=== PATIENT | female | born 1955 | race Caucasian/White ===

== ENCOUNTER 2016-11-01 12:17 | Emergency (ER) | payer MEDICARE ==
[2016-11-01 12:30] VITALS: O2SAT 97
--- NOTE | 2016-11-01 12:55 | ERPHSYRPT ---
- History of Present Illness Time Seen by Provider: 11/01/16 12:47 Source: patient Exam Limitations: no limitations Patient Subjective Stated Complaint: PT REPORTS SWELLING ET PAIN TO RIGHT FOOT- HX OF GOUT Triage Nursing Assessment: PEDAL PULSES REGULAR-NO OBVIOUS SIGNS OF INJURY Physician History: The patient is a 60-year-old female complaining of worsening pain and redness in her right great toe since yesterday. She has a history of gout in the same toe that has occurred twice in the past. She's had bleeding problems with NSAIDs and is unable to take them. She usually gets steroids for a gout flareup. Her past medical history is significant for GERD, hypertension, and gout. She has recently moved here from [place]. Method of Injury: unknown Occurred: yesterday Quality: aching, sharpness, throbbing Severity of Pain-Max: moderate Severity of Pain-Current: moderate Lower Extremities Pain: 1st toe: right Modifying Factors: Improves With: nothing Associated Symptoms: unable to bear weight Allergies/Adverse Reactions: No Known Drug Allergies Allergy (Unverified 11/01/16 12:30) Home Medications: Aspirin 81 gm Chew [Baby Aspirin 81 mg Chew] 81 mg PO DAILY 11/01/16 [ History] Lisinopril/Hydrochlorothiazide [Lisinopril-Hctz 10-12.5 mg Tab] 1 each PO DAILY 11/01/16 [History] Metoprolol Succinate 50 mg [Toprol Xl 50 MG] 50 mg PO DAILY 11/01/16 [ History] Omeprazole 20 MG [Prilosec 20 mg] 20 mg PO DAILY 11/01/16 [History] Hx Tetanus, Diphtheria Vaccination/Date Given: No Hx Influenza Vaccination/Date Given: No Hx Pneumococcal Vaccination/Date Given: No Immunizations Up to Date: Yes - Review of Systems Constitutional: No Fever, No Chills Eyes: No Symptoms Ears, Nose, & Throat: No Symptoms Respiratory: No Cough, No Dyspnea Cardiac: No Chest Pain, No Edema, No Syncope Abdominal/Gastrointestinal: No Abdominal Pain, No Nausea, No Vomiting, No Diarrhea Genitourinary Symptoms: No Dysuria Musculoskeletal: Joint Redness, Joint Pain, Joint Swelling Skin: No Rash Neurological: No Dizziness, No Focal Weakness, No Sensory Changes Psychological: No Symptoms Endocrine: No Symptoms Hematologic/Lymphatic: No Symptoms Immunological/Allergic: No Symptoms All Other Systems: Reviewed and Negative - Past Medical History Pertinent Past Medical History: Yes Cardiac History: Hypertension Musculoskeletal History: Degenerative Disk Disease Other Medical History: GOUT - Past Surgical History Past Surgical History: Yes Female Surgical History: Hysterectomy - Social History Smoking Status: Never smoker Exposure to second hand smoke: No Drug Use: none Patient Lives Alone: No - Female History Hx Last Menstrual Period: HYSTERECTOMY - Nursing Vital Signs Nursing Vital Signs: Initial Vital Signs Temperature 97.6 F Temperature Source Oral Pulse Rate 71 Respiratory Rate 22 Blood Pressure [Right Arm] 139/60 Pain Intensity 9 - Physical Exam General Appearance: alert Eyes, Ears, Nose, Throat Exam: moist mucous membranes Neck Exam: non-tender, supple Cardiovascular/Respiratory Exam: chest non-tender, normal breath sounds, regular rate/rhythm, no respiratory distress Gastrointestinal/Abdominal Exam: non-tender, guarding Back Exam: normal inspection, No vertebral tenderness Hips Exam: bilateral: normal inspection Legs Exam: bilateral leg: normal inspection Knees Exam: bilateral knee: normal inspection Ankle Exam: bilateral ankle: normal inspection Foot Exam: right foot: limited range of motion (great toe), soft tissue tenderness, swelling Neuro/Tendon Exam: normal sensation, normal motor functions Mental Status Exam: alert, oriented x 3, cooperative Skin Exam: warm, dry, rash (right MTP joint) SpO2 Interpretation: normal SpO2: 97 Oxygen Delivery: Room Air - Departure Time of Disposition: 12:59 Departure Disposition: Home Clinical Impression: Acute gout Condition: Stable Critical Care Time: No Additional Instructions: You have an acute exacerbation of gout in your right big toe. You have been given a prescription for prednisone 60 mg daily for 7 days. Since you are new to the area, you can obtain prescriptions from [facility], [facility], or [facility]. Follow-up with your primary medical doctor for long-term prevention of gout. Prescriptions: Prednisone 20 mg [Deltasone 20 mg] 3 tab PO DAILY #21 tablet
[2016-11-01 13:09] VITALS: BP 140/68; PULSE 67
== END 2016-11-01 13:08 | disposition home or self-care (01) ==
LOC: ED 12:17
DX: M10.9 Gout, unspecified (principal); M79.674 Pain in right toe(s); Z87.898 Personal history of other specified conditions
CPT/HCPCS: 99281; 99283

== ENCOUNTER 2017-04-07 22:41 | Emergency (ER) | payer MEDICARE ==
[2017-04-07] MEDS ORDERED: TORAdol 30 mg Injection IM ONE (22:55)
[2017-04-07] MEDS ORDERED: TORAdol 30 mg Injection ONE (22:59)
--- NOTE | 2017-04-07 23:02 | ERPHSYRPT ---
- History of Present Illness Time Seen by Provider: 04/07/17 22:52 Source: patient Exam Limitations: no limitations Patient Subjective Stated Complaint: PT states "I stood up and my foot was asleep and I guess I rolled it." Triage Nursing Assessment: Pt alert and oriented X 3, skin pwd pt ambulates with a limp. Pt rt ankle swollen laterally. CSM X 4. Physician History: 61-year-old white female arrives with complaint of pain in her right lateral ankle since 9:15 PM this evening. According to the patient she stood up her right foot had fallen asleep and she twisted her ankle. She has pain and swelling on her right lateral ankle. She denies any other complaints. Past medical history includes high blood pressure, degenerative disc disease, gout. Past surgical history includes hysterectomy. Method of Injury: twisted (twisted right ankle) Occurred: just prior to arrival (9:15 PM tonight) Quality: constant Severity of Pain-Max: moderate Severity of Pain-Current: moderate Lower Extremities Pain: ankle: right Modifying Factors: Improves With: nothing Associated Symptoms: none Allergies/Adverse Reactions: No Known Drug Allergies Allergy (Unverified 11/01/16 12:30) Home Medications: Aspirin 81 gm Chew [Baby Aspirin 81 mg Chew] 81 mg PO DAILY 11/01/16 [ History] Lisinopril/Hydrochlorothiazide [Lisinopril-Hctz 10-12.5 mg Tab] 1 each PO DAILY 11/01/16 [History] Metoprolol Succinate 50 mg [Toprol Xl 50 MG] 50 mg PO DAILY 11/01/16 [ History] Omeprazole 20 MG [Prilosec 20 mg] 20 mg PO DAILY 11/01/16 [History] Allopurinol 300 mg [Zyloprim 300 mg] 300 mg PO DAILY 04/07/17 [History] Hx Tetanus, Diphtheria Vaccination/Date Given: No Hx Influenza Vaccination/Date Given: No Hx Pneumococcal Vaccination/Date Given: No Immunizations Up to Date: Yes - Review of Systems Constitutional: No Fever, No Chills Eyes: No Symptoms Ears, Nose, & Throat: No Symptoms Respiratory: No Cough, No Dyspnea Cardiac: No Chest Pain, No Edema, No Syncope Abdominal/Gastrointestinal: No Abdominal Pain, No Nausea, No Vomiting, No Diarrhea Genitourinary Symptoms: No Dysuria Musculoskeletal: Other (right ankle pain and swelling) Skin: No Rash Neurological: No Dizziness, No Focal Weakness, No Sensory Changes Psychological: No Symptoms Endocrine: No Symptoms All Other Systems: Reviewed and Negative - Past Medical History Pertinent Past Medical History: Yes Cardiac History: Hypertension Musculoskeletal History: Degenerative Disk Disease, Other (gout) Other Medical History: GOUT - Past Surgical History Past Surgical History: Yes Female Surgical History: Hysterectomy - Social History Smoking Status: Never smoker Exposure to second hand smoke: Yes Drug Use: none Patient Lives Alone: No - Female History Hx Last Menstrual Period: histerectomy - Nursing Vital Signs Nursing Vital Signs: Initial Vital Signs Temperature 99.0 F 04/07/17 22:42 Pulse Rate 89 04/07/17 22:42 Respiratory Rate 16 04/07/17 22:42 Blood Pressure 157/82 04/07/17 22:42 O2 Sat by Pulse Oximetry 97 04/07/17 22:42 Pain Scale Pain Intensity 6 - Physical Exam General Appearance: mild distress Eyes, Ears, Nose, Throat Exam: moist mucous membranes Neck Exam: non-tender, supple Cardiovascular/Respiratory Exam: chest non-tender, normal breath sounds, regular rate/rhythm, no respiratory distress Gastrointestinal/Abdominal Exam: non-tender, guarding Back Exam: normal inspection, normal range of motion, No vertebral tenderness Hips Exam: bilateral: non-tender, normal inspection, normal range of motion, no evidence of injury Legs Exam: bilateral leg: non-tender, normal inspection, normal range of motion , no evidence of injury Knees Exam: bilateral knee: non-tender, normal inspection, normal range of motion, no evidence of injury Ankle Exam: right ankle: other (tenderness with palpation and movement right lateral ankle, moderate edema right lateral ankle dorsal pedal, posterior tibial pulses intact 2 over 4, good capillary refill all toes sensation intact to all toes), left ankle: non-tender, normal inspection, normal range of motion , no evidence of injury Foot Exam: bilateral foot: non-tender, normal inspection, normal range of motion , no evidence of injury DTR - Lower Extremities Exam: ankle (R): 2+, ankle (L): 2+ Neuro/Tendon Exam: normal sensation, normal motor functions Mental Status Exam: alert, oriented x 3, cooperative Skin Exam: normal color, warm, dry SpO2 Interpretation: normal (97%) SpO2: 97 Oxygen Delivery: Room Air - Course Nursing assessment & vital signs reviewed: Yes - Radiology Exams Right Ankle X-ray Interpretation: Interpreted by me, Negative, No Fracture, No Subluxation Ordered Tests: Active Orders 24 hr Category Date Time Status Crutches STAT Care 04/07/17 23:11 Active Splint STAT Care 04/07/17 23:11 Active ANKLE (3 VIEWS) Stat Exams 04/07/17 22:55 Taken Medication Summary Discontinued Medications Generic Name Dose Route Start Last Admin Trade Name Clint PRN Reason Stop Dose Admin Ketorolac Tromethamine 60 mg 04/07/17 22:55 04/07/17 23:01 Toradol 30 Mg Injection IM 04/07/17 22:56 60 mg STAT ONE Administration Ketorolac Tromethamine Confirm 04/07/17 22:59 Toradol 30 Mg Injection Administered 04/07/17 23:00 Dose 60 mg .ROUTE .STNanoVibronix-MED ONE - Progress Progress: improved Progress Note: 04/07/17 23:00 This is a 61-year-old white female with history of high blood pressure, degenerative disc disease, and gout she complains of pain and swelling in her right lateral ankle after twisting her ankle at approximately 9:15 PM tonight. Will go ahead and obtain x-ray of the patient's right ankle give patient Toradol 60 mg IM. Inspect report has been reviewed patient does not have any apparent history of chronic narcotic use, 04/07/17 23:13 X-ray right ankle(my read), no fractures no subluxation Will go ahead and Have [address] [employer] on patient's right ankle and provide crutches. Patient has received Toradol IM. Will give patient [place] 5/325 2 tablets to take home and a prescription for #12 tablets 1 every 4-6 hours as needed for pain. - Departure Time of Disposition: 23:14 Departure Disposition: Home Clinical Impression: Right ankle pain Qualifiers: Chronicity: acute Qualified Code(s): M25.571 - Pain in right ankle and joints of right foot Right ankle sprain Qualifiers: Encounter type: initial encounter Involved ligament of ankle: unspecified ligament Qualified Code(s): S93.401A - Sprain of unspecified ligament of right ankle, initial encounter Condition: Fair Critical Care Time: No Referrals: FRANK KING [Primary Care Provider] - Instructions: Ankle Sprain, Ankle Pain Additional Instructions: Return home. Ice and elevate your right ankle 24-48 hours. Crutches weightbearing as tolerated. [place] 5/325 #12 one orally every 4-6 hours as needed for pain. You will be given 2 additional tablets which you may take one every 4-6 hours as needed for pain prior to filling your prescription in the morning. Follow-up with your family doctor if symptoms are worse, no better in 48 hours, or persist longer than one week. Return for acute distress or for severe symptoms. Your x-rays have been preliminarily read they will be reread tomorrow morning you'll be contacted if any discrepancies are noted. Prescriptions: Hydrocodone Bit/Acetaminophen [[place] 5/325Mg] 1 tab PO Q4-6HPRN PRN #12 tablet PRN Reason: Pain
[2017-04-07] MEDS ORDERED: NORCO 5/325 MG PO ONE (23:12)
[2017-04-07] MEDS ORDERED: NORCO 5/325 MG ONE (23:19)
[2017-04-07 23:26] VITALS: BP 109/75; PULSE 68; O2SAT 98
--- NOTE | 2017-04-08 08:38 | XRAY ---
Indication: Pain following twisting injury. Comparison: None 3 views of the right ankle demonstrates lateral soft tissue swelling, heel spurs, and tiny well circumscribed ossifications adjacent to the medial and lateral malleolus tip either degenerative versus old injury. No other bony, articular, or soft tissue abnormalities.
== END 2017-04-07 23:29 | disposition home or self-care (01) ==
LOC: ED 22:41
DX: M25.571 Pain in right ankle and joints of right foot (principal); S93.401A Sprain of unspecified ligament of right ankle, initial encounter; X50.0XXA Overexertion from strenuous movement or load, initial encounter; I10 Essential (primary) hypertension; Z79.899 Other long term (current) drug therapy
CPT/HCPCS: 73610; 96372; 99284; J1885; A9270-GY

== ENCOUNTER 2019-01-29 08:36 | Day surgery (SDC) | payer MEDICARE ==
--- NOTE | 2019-01-29 09:04 | HP ---
DATE OF SURGERY: 01/29/2019 HISTORY OF PRESENT ILLNESS: The patient is a 63 year-old who had some vague problems with aches and loose stools in the past. Last colonoscopy was ten to eleven years ago. No polyps. She is in need of follow up screening colonoscopy. Family history negative for colon cancer. She denies any bloody stools or change in bowel movements. Bowel movements improved after she stopped meloxicam. PAST MEDICAL HISTORY: Hypertension. Obesity. Gastroesophageal reflux disease. Chronic interstitial cystitis. Degenerative back disease. Gout. PAST SURGICAL HISTORY: Hysterectomy. Cholecystectomy. Hiatal hernia. MEDICATIONS: Toprol, omeprazole, lisinopril, allopurinol, baby aspirin, aloe vera capsule. ALLERGIES: NKDA. FAMILY HISTORY: Diabetes, Parkinson's, breast cancer, hypertension, heart disease, uterine cancer. SOCIAL HISTORY: No smoking. Occasional alcohol use denies abuse. REVIEW OF SYSTEMS: Fourteen systems reviewed per admission assessment. No chest pain or palpitations other systems negative or noncontributory as above and per preadmission questionnaire. PHYSICAL EXAMINATION: GENERAL: No acute distress. HEENT: Sclerae nonicteric. NECK: No JVD. CHEST: Equal excursion, nonlabored breathing. CVS: Regular rate and rhythm. ABDOMEN: Soft. No peritoneal signs. EXTREMITIES: No significant edema. NEURO: Alert, oriented, moving extremities symmetrically. RECTAL: Deferred timed to endoscopy exam. IMPRESSION: Last colonoscopy ten or eleven years ago. She is in need of follow up screening colonoscopy. I feel she is a candidate. She was shown the risk sheet and explained the procedure in detail but not limited to bleeding or infection, small risk of bowel injury or perforation possibly requiring open procedure, risk of missed or nondiagnosis or incomplete exam possibly requiring barium enema, other studies or procedures, general risk of anesthesia or sedation, risk of bowel prep but not limited to, will proceed with outpatient follow up screening colonoscopy.
[2019-01-29] MEDS ORDERED: Lactated Ringers 1,000 ML IV SCH (09:30)
[2019-01-29] MEDS ORDERED: DIPRIVAN 200 MG/20 ML IV ONE ×2 (10:59→11:12)
[2019-01-29 12:08] VITALS: O2SAT 94
[2019-01-29 12:26] VITALS: BP 158/69; PULSE 76
--- NOTE | 2019-01-29 14:43 | OP ---
SURGERY DATE/TIME: 01/29/2019 1100 PREOPERATIVE DIAGNOSIS: History of polyps, need for follow up screening colonoscopy and also intermittent aches or change in stool. POSTOPERATIVE DIAGNOSES: 1) Tortuous colon. 2) Diverticulosis. 3) Fair bowel prep. 4) Small internal and external hemorrhoids. 5) Small polyp ascending colon. 6) Small raised lesion sigmoid colon. 7) Small anorectal hypertrophy papilla path pending. PROCEDURES: 1) Colonoscopy to cecum with hot biopsy removal of ascending colon polyp. 2) Hot biopsy small raised lesion versus hyperplastic lesion versus early polyp sigmoid colon. 3) Random cold biopsies of colon to evaluate for microscopic colitis. 4) Cold biopsy hypertrophied anorectal papilla. SURGEON: Dr. David Stevens. CASTING TECHNICIAN: Cam Nair M.D. - Medical Student III. ANESTHESIA: MAC. ESTIMATED BLOOD LOSS: Minimal. INDICATIONS: As noted above. Risks and benefits explained in detail but not limited to and consent obtained. DESCRIPTION OF PROCEDURE AND FINDINGS: The patient is taken to the operating room. MAC anesthesia introduced. After official time out and no disagreement with planned procedure, digital rectal exam revealed small internal and external hemorrhoids. She had a little prominent anorectal papilla. Otherwise no palpable other rectal masses. Video colonoscope inserted and passed up through the fair prepped colon around to the transverse around to the ascending colon where she was a little bit tortuous at this point. With external pressure and positioning on her back the scope was able to be passed to the cecum. Cecum, appendiceal orifice and valve well visualized. Because of her obesity and the tortuosity of colon the scope would not easily go up the terminal ileum. The scope is slowly and carefully withdrawn over the next 10 minutes. There was a small polyp in the ascending colon removed with hot biopsy forceps with brief bursts of cautery. Otherwise some random cold biopsies done in the colon to evaluate for microscopic colitis given her history of some bowel issues in the past. The scope is slowly and carefully withdrawn. She did have some diverticulosis. She did have small raised lesions versus hyperplastic lesion versus early polyp in the sigmoid colon removed with hot biopsy forceps with brief bursts of cautery. Good hemostasis noted. Otherwise she had some internal and external hemorrhoids. She did have hypertrophy in the rectal papilla. There were biopsies with cold biopsy forceps for completeness. Overall she had fair bowel prep with liquidy semi-solid stool limiting the exam for very tiny lesions but there were no signs of any large polyps, masses or obstructing lesions. The scope is withdrawn. I spoke to the family out in the waiting area.
== END 2019-01-29 12:30 | disposition home or self-care (01) ==
LOC: SDC 08:36
PROVIDERS: ATTEND Surgery
DX: Z12.11 Encounter for screening for malignant neoplasm of colon (principal); K57.30 Diverticulosis of large intestine without perforation or abscess without bleeding; D12.2 Benign neoplasm of ascending colon; K63.5 Polyp of colon; K64.4 Residual hemorrhoidal skin tags; K64.8 Other hemorrhoids; K62.89 Other specified diseases of anus and rectum; Z86.010 Personal history of colon polyps; I10 Essential (primary) hypertension; Z79.899 Other long term (current) drug therapy
CPT/HCPCS: 88305; J2704

== ENCOUNTER 2021-12-14 14:10 | Emergency (ER) | payer MEDICARE ==
--- NOTE | 2021-12-14 14:24 | ERPHSYRPT ---
- History of Present Illness Time Seen by Provider: 12/14/21 14:24 Source: patient Exam Limitations: no limitations Patient Subjective Stated Complaint: pt here for sob since with pressure under both ribs, pain eases with rest, denies and other cos Triage Nursing Assessment: pt alert, resp easy, skin w/d/p. abd soft, chest clear, face mask in place, no edema noted, Physician History: This is a 66-year-old obese white female patient of Dr. Borja who sent the patient over to our emergency department because of shortness of breath symptoms as well as bilateral lower chest wall pain. 4 days ago, the patient was choking on food and her performed a Heimlich maneuver which expelled the food out. A couple days after that, her fell and she was working to pick him up and she noticed her heart racing. She checked her heart rate and it was 163 bpm. Since that time her heart rate has not been normal (under 100 bpm) until earlier today. Patient arrives emergency department with a heart rate in the 108-110 bpm patient's systolic blood pressure is 152 patient denies fever. She denies cough. She denies use of new medication. She does consume caffeinated products but no new amounts or types. Activities at Onset: activity Severity of Dyspnea-Max: moderate (With exertion) Severity of Dyspnea-Current: none Possible Cause: no prior episodes Modifying Factors: Improves With: exertion Associated Symptoms: denies symptoms Allergies/Adverse Reactions: No Known Drug Allergies Allergy (Verified 12/14/21 14:13) Home Medications: Metoprolol Succinate 50 mg [Toprol Xl 50 MG] 50 mg PO DAILY 11/01/16 [History] Omeprazole 20 MG [Prilosec 20 mg] 20 mg PO DAILY 11/01/16 [History] Allopurinol 300 mg [Zyloprim 300 mg] 300 mg PO DAILY 04/07/17 [History] Atorvastatin Calcium 10 mg PO DAILY 12/14/21 [History] Escitalopram Oxalate [Lexapro] 10 mg PO DAILY 12/14/21 [History] Levothyroxine Sodium 1 ea DAILY 12/14/21 [History] Triamterene/Hydrochlorothiazid [Triamterene-Hctz 37.5-25 mg Tb] 1 ea DAILY 12/14/21 [History] Hx Tetanus, Diphtheria Vaccination/Date Given: No Hx Influenza Vaccination/Date Given: No Hx Pneumococcal Vaccination/Date Given: No Immunizations Up to Date: Yes Travel Risk - International Travel Have you traveled outside of the country in past 3 weeks: No - Coronavirus Screening Are you exhibiting any of the following symptoms?: No Close contact with a COVID-19 positive Pt in past 14-21 Days: No - Vaccine Status Have you recieved a Covid-19 vaccination: 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[employer] - Vaccination Dates Date of 2cond Vaccination (if applicable): 2020 - Review of Systems Constitutional: No Symptoms Eyes: No Symptoms Ears, Nose, & Throat: No Symptoms Respiratory: Dyspnea Cardiac: Chest Pain, Palpitations Abdominal/Gastrointestinal: No Symptoms Genitourinary Symptoms: No Symptoms Musculoskeletal: No Symptoms Skin: No Symptoms Neurological: No Symptoms Psychological: No Symptoms Endocrine: No Symptoms Hematologic/Lymphatic: No Symptoms Immunological/Allergic: No Symptoms All Other Systems: Reviewed and Negative - Past Medical History Pertinent Past Medical History: Yes Neurological History: TIA ENT History: Cataracts Cardiac History: High Cholesterol, Hypertension Respiratory History: No Pertinent History Endocrine Medical History: No Pertinent History Musculoskeletal History: Degenerative Disk Disease GI Medical History: GERD, Other History: No Pertinent History Psycho-Social History: No Pertinent History Female Reproductive Disorders: No Pertinent History Other Medical History: GOUT, OBESITY, GERD, DIVERTICULITIS, CHRONIC INTERSTITIAL CYSTITIS. SX HX - HYSTERECTOMY, CHOLECHYSTECTOMY,hiatal hernia - Past Surgical History Past Surgical History: Yes Neuro Surgical History: No Pertinent History Cardiac: No Pertinent History Respiratory: No Pertinent History Gastrointestinal: Cholecystectomy Genitourinary: No Pertinent History Musculoskeletal: No Pertinent History Female Surgical History: Hysterectomy Other Surgical History: right cataract extraction - Social History Smoking Status: Never smoker Exposure to second hand smoke: Yes Drug Use: none Patient Lives Alone: No - Nursing Vital Signs Nursing Vital Signs: Initial Vital Signs Temperature 97.2 F 12/14/21 14:17 Pulse Rate 114 H 12/14/21 14:17 Respiratory Rate 20 12/14/21 14:17 Blood Pressure 179/99 12/14/21 14:17 O2 Sat by Pulse Oximetry 96 12/14/21 14:17 Pain Scale Pain Intensity 2 - Physical Exam General Appearance: no apparent distress, alert, anxiety, obese Eye Exam: PERRL/EOMI, eyes nml inspection Ears, Nose, Throat Exam: hearing grossly normal, normal ENT inspection, normal pharynx Neck Exam: normal inspection, non-tender, supple, full range of motion Respiratory Exam: normal breath sounds, lungs clear, airway intact, No chest tenderness, No respiratory distress Cardiovascular/Chest Exam: tachycardia Abdominal/Gastrointestinal Exam: soft, normal bowel sounds, No tenderness Rectal Exam: not done Extremity Exam: non-tender, normal range of motion, normal inspection, normal capillary refill, no calf tenderness, no pedal edema, pelvis stable Neurologic Exam: alert, oriented x 3, cooperative, 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 II-XII nml as tested, normal mood/affect, nml cerebellar function, nml station & gait, sensation nml Skin Exam: normal color, warm, dry Lymphatic Exam: No adenopathy SpO2 Interpretation: normal SpO2: 96 O2 Delivery: Room Air - Course Nursing assessment & vital signs reviewed: Yes EKG Interpreted by Me: RATE ([id number]), Sinus Tach, NORMAL AXIS, NORMAL INTERVALS, NORMAL QRS, NORMAL ST-T, Other (No acute ischemic changes on today's EKG.) Ordered Tests: Active Orders 24 hr Category Date Time Status Product Manager STAT Care 12/14/21 14:44 Active EKG-ER Only STAT Care 12/14/21 14:43 Active IV Insertion STAT Care 12/14/21 14:43 Active Pulse Oximetry (ED) STAT Care 12/14/21 14:43 Active CHEST 1 VIEW (PORTABLE) Stat Exams 12/14/21 14:43 Completed CBC W DIFF Stat Lab 12/14/21 14:55 Completed CMP Stat Lab 12/14/21 14:55 Completed D-DIMER QUANTITATIVE Stat Lab 12/14/21 14:55 Completed NT PRO BNP Stat Lab 12/14/21 14:55 Completed T4 (Thyroxine) Stat Lab 12/14/21 Completed TROPONIN Q3H Lab 12/14/21 14:55 Completed TROPONIN Q3H Lab 12/14/21 17:45 Ordered TROPONIN Q3H Lab 12/14/21 20:45 Ordered TROPONIN Q3H Lab 12/14/21 23:45 Ordered TROPONIN Q3H Lab 12/15/21 02:45 Ordered TSH [TSH, 3RD Generation] Stat Lab 12/14/21 15:20 Completed Medication Summary Discontinued Medications Generic Name Dose Route Start Last Admin Trade Name Freq PRN Reason Stop Dose Admin Metoprolol Tartrate 5 mg 12/14/21 15:20 12/14/21 15:26 Metoprolol Tartrate 5 Mg/5 Ml Vial IV 12/14/21 15:21 5 mg STAT ONE Administration Metoprolol Tartrate Confirm 12/14/21 15:24 Metoprolol Tartrate 5 Mg/5 Ml Vial Administered 12/14/21 15:25 Dose 5 mg IV .STK-MED ONE Lab/Rad Data: Laboratory Result Diagrams 12/14/21 14:55 12/14/21 14:55 Laboratory Results 12/14/21 12/14/21 12/14/21 Range/Units Unknown 15:20 14:55 WBC (4.0-10.5) x10^3/uL RBC (4.1-5.4) x10^6/uL Hgb (12.0-16.0) g/dL Hct (35-47) % MCV (78-100) fL MCH (26-32) pg MCHC (32-36) g/dL RDW (11.5-14.0) % Plt Count (150-450) x10^3/uL MPV (7.5-11.0) fL Gran % (36.0-66.0) % Immature Gran % (Auto) (0.00-0.4) % Nucleat RBC Rel Count (0.00-0.1) % Eos # (Auto) (0-0.5) x10^3/uL Immature Gran # (Auto) (0.00-0.03) x10^3u/L Absolute Lymphs (auto) (1.0-4.6) x10^3/uL Absolute Monos (auto) (0.0-1.3) x10^3/uL Absolute Nucleated RBC (0.00-0.01) x10^3u/L Lymphocytes % (24.0-44.0) % Monocytes % (0.0-12.0) % Eosinophils % (0.00-5.0) % Basophils % (0.0-0.4) % Absolute Granulocytes (1.4-6.9) x10^3/uL Basophils # (0-0.4) x10^3/uL D-Dimer (0.0-0.50) mg/L Sodium (137-145) mmol/L Potassium (3.5-5.1) mmol/L Chloride (98-107) mmol/L Carbon Dioxide (22-30) mmol/L Anion Gap (5-15) MEQ/L BUN (7-17) mg/dL Creatinine (0.52-1.04) mg/dL Estimated GFR ML/MIN Glucose (74-106) mg/dL Calcium (8.4-10.2) mg/dL Total Bilirubin (0.2-1.3) mg/dL AST (14-36) U/L ALT (0-35) U/L Alkaline Phosphatase (38-126) U/L Troponin I < 0.012 (0.000-0.034) ng/mL NT-Pro-B Natriuret Pep (0-900) pg/mL Serum Total Protein (6.3-8.2) g/dL Albumin (3.5-5.0) g/dL Thyroxine (T4) 6.91 (5.53-10.96) ug/dL TSH 3rd Generation 1.470 (0.47-4.68) mIU/L 12/14/21 12/14/21 12/14/21 Range/Units 14:55 14:55 14:55 WBC 11.6 H (4.0-10.5) x10^3/uL RBC 4.82 (4.1-5.4) x10^6/uL Hgb 13.5 (12.0-16.0) g/dL Hct 43.1 (35-47) % MCV 89.4 (78-100) fL MCH 28.0 (26-32) pg MCHC 31.3 L (32-36) g/dL RDW 14.3 H (11.5-14.0) % Plt Count 332 (150-450) x10^3/uL MPV 9.5 (7.5-11.0) fL Gran % 74.5 H (36.0-66.0) % Immature Gran % (Auto) 0.4 (0.00-0.4) % Nucleat RBC Rel Count 0.0 (0.00-0.1) % Eos # (Auto) 0.09 (0-0.5) x10^3/uL Immature Gran # (Auto) 0.05 H (0.00-0.03) x10^3u/L Absolute Lymphs (auto) 1.91 (1.0-4.6) x10^3/uL Absolute Monos (auto) 0.81 (0.0-1.3) x10^3/uL Absolute Nucleated RBC 0.00 (0.00-0.01) x10^3u/L Lymphocytes % 16.4 L (24.0-44.0) % Monocytes % 7.0 (0.0-12.0) % Eosinophils % 0.8 (0.00-5.0) % Basophils % 0.9 (0.0-0.4) % Absolute Granulocytes 8.66 H (1.4-6.9) x10^3/uL Basophils # 0.11 (0-0.4) x10^3/uL D-Dimer 0.46 (0.0-0.50) mg/L Sodium 142 (137-145) mmol/L Potassium 3.4 L (3.5-5.1) mmol/L Chloride 104 (98-107) mmol/L Carbon Dioxide 26 (22-30) mmol/L Anion Gap 14.7 (5-15) MEQ/L BUN 17 (7-17) mg/dL Creatinine 1.11 H (0.52-1.04) mg/dL Estimated GFR 52.4 ML/MIN Glucose 107 H (74-106) mg/dL Calcium 9.5 (8.4-10.2) mg/dL Total Bilirubin 0.60 (0.2-1.3) mg/dL AST 31 (14-36) U/L ALT 25 (0-35) U/L Alkaline Phosphatase 121 (38-126) U/L Troponin I (0.000-0.034) ng/mL NT-Pro-B Natriuret Pep 225 (0-900) pg/mL Serum Total Protein 7.6 (6.3-8.2) g/dL Albumin 4.2 (3.5-5.0) g/dL Thyroxine (T4) (5.53-10.96) ug/dL TSH 3rd Generation (0.47-4.68) mIU/L - Progress Progress: improved, re-examined Air Movement: good Progress Note: 12/14/21 16:32 X-ray shows no acute cardiopulmonary process. Medical decision making: This patient has new onset tachycardia. Her work-up is negative for any acute cardiac issue. We will place her on a Holter monitor for 48 hours and she is to follow-up with her primary care physician for further management. Blood Culture(s) Obtained: No Antibiotics given: No Counseled pt/family regarding: lab results, diagnosis, need for follow-up, rad results - Departure Departure Disposition: Home Clinical Impression: Tachycardia Condition: Stable Critical Care Time: No Referrals: MONICA BORJA, [Primary Care Provider] - Follow up/PCP as directed Additional Instructions: Take all your medication as prescribed. Wear the Holter monitor for 48 hours as instructed and return the monitor as instructed. Follow-up with your primary care physician for further management.
--- NOTE | 2021-12-14 15:03 | XRAY ---
Indication: Short of breath. Tachycardia. Comparison: December 15, 2019. Portable apical lordotic chest again demonstrates normal heart and lungs with incidental mild right hemidiaphragm elevation. Bony thorax intact with mild degenerative changes. No new/acute findings.
[2021-12-14 15:05] LABS: Absolute Neutrophil Ct (ANC) 8.66 x10^3/uL (1.4-6.9); Basophil (Absolute #) 0.11 x10^3/uL (0-0.4); Eosinophil % 0.8 % (0.00-5.0); Eosinophil (Absolute #) 0.09 x10^3/uL (0-0.5); Hematocrit 43.1 % (35-47); Hemoglobin 13.5 g/dL (12.0-16.0); Lymphocyte (Absolute #) 1.91 x10^3/uL (1.0-4.6); Lymphocytes % 16.4 % (24.0-44.0); Mean Cell Volume 89.4 fL (78-100); Mean Corpuscular Hgb Concent. 31.3 g/dL (32-36); Mean Platelet Volume 9.5 fL (7.5-11.0); Monocyte (Absolute #) 0.81 x10^3/uL (0.0-1.3); Neutrophil % 74.5 % (36.0-66.0); Platelet Count 332 x10^3/uL (150-450); Red Blood Count 4.82 x10^6/uL (4.1-5.4); Red Cell Distribution Width 14.3 % (11.5-14.0); White Blood Count 11.6 x10^3/uL (4.0-10.5)
[2021-12-14 15:15] LABS: ALBUMIN 4.2 g/dL (3.5-5.0); ANION GAP 14.7 MEQ/L (5-15); BILIRUBIN,TOTAL 0.6 mg/dL (0.2-1.3); Calcium 9.5 mg/dL (8.4-10.2); Creatinine 1 1.11 mg/dL (0.52-1.04); EST GLOMERULAR FILTRATION RATE 52.4 ML/MIN; Potassium 3.4 mmol/L (3.5-5.1); Total Protein 7.6 g/dL (6.3-8.2)
[2021-12-14] MEDS ORDERED: LOPRESSOR INJECTION IV ONE ×2 (15:20→15:24)
[2021-12-14 16:29] VITALS: O2SAT 96
[2021-12-14 16:43] VITALS: BP 136/67; PULSE 88
== END 2021-12-14 16:47 | disposition home or self-care (01) ==
LOC: ED 14:10
DX: R00.0 Tachycardia, unspecified (principal); R06.02 Shortness of breath; R07.9 Chest pain, unspecified; E78.5 Hyperlipidemia, unspecified; I10 Essential (primary) hypertension; Z79.899 Other long term (current) drug therapy
CPT/HCPCS: 36000; 36415; 71045; 80053; 83880; 84436; 84443; 84484; 85025; 85379; 93005; 93041; 93225; 94760; 96374; 99284

== ENCOUNTER 2022-07-14 12:22 | Day surgery (SDC) | payer MEDICARE ==
[2022-07-14] MEDS ORDERED: Depo-Medrol 40 MG/ML IM ONE (12:23)
[2022-07-14] MEDS ORDERED: Sodium Chloride 0.9(Preservative Free) 10 ML IJ ONE (12:23)
[2022-07-14] MEDS ORDERED: Lactated Ringers 1,000 ML IV ONE ×2 (14:36→16:41)
[2022-07-14] MEDS ORDERED: DIPRIVAN 200 MG/20 ML IV ONE (14:46)
--- NOTE | 2022-07-14 16:40 | XRAY ---
Indication: Caudal SANTANA. Intraoperative fluoroscopy provided for 19 seconds. 2 digital spot image submitted for interpretation demonstrates caudal needle tip projecting mid sacrum. Small amount of contrast injected for needle tip placement. Correlate with intraoperative findings/report.
--- NOTE | 2022-07-14 16:42 | XRAY ---
19 seconds fluoroscopy time in surgery for caudal SANTANA.
== END 2022-07-14 15:00 | disposition home or self-care (01) ==
LOC: SDC-PAIN 12:22
PROVIDERS: ATTEND Psychiatry & Neurology Pain Medicine
DX: M54.16 Radiculopathy, lumbar region (principal); Z79.899 Other long term (current) drug therapy
CPT/HCPCS: 62323; 72220; 77003; J1030; J2704; Q9966

== ENCOUNTER 2022-12-02 09:17 | Emergency (ER) | payer MEDICARE, SELFPAY ==
[2022-12-02] MEDS ORDERED: TORAdol 30 mg Injection IM ONE (09:53)
--- NOTE | 2022-12-02 09:55 | ERPHSYRPT ---
- History of Present Illness Source: patient Exam Limitations: no limitations Patient Subjective Stated Complaint: Pt states "I was getting out of my car yesterday and my foot was asleep and when I stood up my ankle rolled under and it hurts today." Triage Nursing Assessment: Pt presented alert and oriented X 3, skin pwd. Pt right ankle swollen and tender. CSM X 4. Physician History: 67 yo WF w R ankle pain after rolling it last night getting out of her car after it fell asleep. Pain is moderate and worse w weight bearing. she denies other injuries at this time. Method of Injury: twisted Occurred: yesterday Severity of Pain-Max: moderate Severity of Pain-Current: moderate Lower Extremities Pain: ankle: right Modifying Factors: Improves With: movement Associated Symptoms: none Allergies/Adverse Reactions: No Known Drug Allergies Allergy (Verified 12/14/21 14:13) Home Medications: Metoprolol Succinate 50 mg [Toprol Xl 50 MG] 50 mg PO DAILY 11/01/16 [History] Omeprazole 20 MG [Prilosec 20 mg] 20 mg PO DAILY 11/01/16 [History] Allopurinol 300 mg [Zyloprim 300 mg] 300 mg PO DAILY 04/07/17 [History] Atorvastatin Calcium 10 mg PO DAILY 12/14/21 [History] Escitalopram Oxalate [Lexapro] 10 mg PO DAILY 12/14/21 [History] Levothyroxine Sodium 1 ea PO DAILY 12/14/21 [History] Triamterene/Hydrochlorothiazid [Triamterene-Hctz 37.5-25 mg Tb] 1 ea PO DAILY 12/14/21 [History] Hx Tetanus, Diphtheria Vaccination/Date Given: No Hx Influenza Vaccination/Date Given: No Hx Pneumococcal Vaccination/Date Given: No Immunizations Up to Date: No Travel Risk - International Travel Have you traveled outside of the country in past 3 weeks: No - Coronavirus Screening Are you exhibiting any of the following symptoms?: No Close contact with a COVID-19 positive Pt in past 14-21 Days: No - Vaccine Status Have you recieved a Covid-19 vaccination: 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[employer] - Vaccination Dates Date of 2cond Vaccination (if applicable): 2020 - Review of Systems Constitutional: No Symptoms Eyes: No Symptoms Ears, Nose, & Throat: No Symptoms Respiratory: No Symptoms Cardiac: No Symptoms Abdominal/Gastrointestinal: No Symptoms Genitourinary Symptoms: No Symptoms Skin: No Symptoms Neurological: No Symptoms Psychological: No Symptoms Endocrine: No Symptoms Hematologic/Lymphatic: No Symptoms Immunological/Allergic: No Symptoms - Past Medical History Pertinent Past Medical History: Yes Neurological History: TIA ENT History: Cataracts Cardiac History: High Cholesterol, Hypertension Respiratory History: No Pertinent History Endocrine Medical History: No Pertinent History Musculoskeletal History: Degenerative Disk Disease GI Medical History: GERD, Other History: No Pertinent History Psycho-Social History: No Pertinent History Female Reproductive Disorders: No Pertinent History Other Medical History: GOUT, OBESITY, GERD, DIVERTICULITIS, CHRONIC INTERSTITIAL CYSTITIS. SX HX - HYSTERECTOMY, CHOLECHYSTECTOMY,hiatal hernia - Past Surgical History Past Surgical History: Yes Neuro Surgical History: No Pertinent History Cardiac: No Pertinent History Respiratory: No Pertinent History Gastrointestinal: Cholecystectomy Genitourinary: No Pertinent History Musculoskeletal: No Pertinent History Female Surgical History: Hysterectomy Other Surgical History: right cataract extraction - Social History Smoking Status: Never smoker Exposure to second hand smoke: Yes Drug Use: none Patient Lives Alone: Yes - Nursing Vital Signs Nursing Vital Signs: Initial Vital Signs Temperature 97.1 F 12/02/22 09:27 Pulse Rate 84 12/02/22 09:27 Respiratory Rate 20 12/02/22 09:27 Blood Pressure 115/82 12/02/22 09:27 O2 Sat by Pulse Oximetry 96 12/02/22 09:27 Pain Scale Pain Intensity 8 WNL - Physical Exam General Appearance: no apparent distress Eyes, Ears, Nose, Throat Exam: normal ENT inspection, TMs normal, pharynx normal, moist mucous membranes Neck Exam: normal inspection, non-tender, supple, full range of motion, No Brudzinski, No Kernig's, No meningismus, No carotid bruit Cardiovascular/Respiratory Exam: normal breath sounds, regular rate/rhythm, heart sounds normal Gastrointestinal/Abdominal Exam: non-tender, soft Back Exam: normal inspection, normal range of motion, No CVA tenderness, No vertebral tenderness Hips Exam: bilateral: non-tender, normal inspection, normal range of motion, no evidence of injury Legs Exam: bilateral leg: non-tender, normal inspection, normal range of motion, no evidence of injury Knees Exam: bilateral knee: non-tender, normal inspection, normal range of motion, no evidence of injury Ankle Exam: right ankle: swelling (Marked edema laterally/TTP inferior to lateral malleolus/Pain w inversion/Good pedal pulse, distal sensation, and capillary return) Foot Exam: bilateral foot: non-tender, normal inspection, normal range of motion, no evidence of injury DTR - Lower Extremities Exam: knee (R): 2+, knee (L): 2+ Neuro/Tendon Exam: normal sensation, normal motor functions, normal tendon functions, responds to pain Mental Status Exam: alert, oriented x 3, cooperative Skin Exam: normal color, warm, dry SpO2 Interpretation: normal SpO2: 96 O2 Delivery: Room Air - Course Nursing assessment & vital signs reviewed: Yes - Radiology Exams Ankle X-ray Interpretation: Reviewed by me, Discussed w/ radiologist (R ankle/No fx/DJD) Ordered Tests: Active Orders 24 hr Category Date Time Status Alonzo Bandage Application -[facility] STAT Care 12/02/22 10:14 Active ANKLE (3 VIEWS) Stat Exams 12/02/22 09:33 Completed Medication Summary Discontinued Medications Generic Name Dose Route Start Last Admin Trade Name Clint PRN Reason Stop Dose Admin Ketorolac Tromethamine 15 mg 12/02/22 09:53 12/02/22 10:03 Ketorolac Tromethamine 30 Mg/Ml Inj IM 12/02/22 09:54 15 mg STAT ONE Administration Ketorolac Tromethamine Confirm 12/02/22 10:03 Ketorolac Tromethamine 30 Mg/Ml Inj Administered 12/02/22 10:04 Dose 30 mg .ROUTE .STK-MED ONE - Progress Progress: improved Progress Note: 12/02/22 10:30 Nursing note and vital signs reviewed No food or housing insecurities noted 15mg IM Toradol w improvement in pain XR result reviewed and shared w pt Alonzo wrap R ankle per nursing/NVI Counseled pt/family regarding: diagnosis, need for follow-up, rad results Medical Desision Making - Diagnostic Testing Radiological Interpretation: Reviewed by me - Risk of complications Low Risk: Low risk of morbidity from additional dx testing or treatment - Departure Departure Disposition: Home Clinical Impression: Right ankle sprain Condition: Stable Critical Care Time: No Referrals: MONICA MCCLAIN, [Primary Care Provider] - Follow up/PCP as directed Instructions: Ankle Sprain (DC) Additional Instructions: Ice for 12-24 hours Alonzo wrap for 2-3 days Weight bearing as tolerated Motrin/Tylenol for pain Follow up with your family MD or ortho clinic for continued pain
[2022-12-02] MEDS ORDERED: TORAdol 30 mg Injection ONE (10:03)
--- NOTE | 2022-12-02 10:07 | XRAY ---
Indication: Pain following injury. Comparison: None 3 view right ankle demonstrates lateral soft tissue swelling without fracture/dislocation. Chronic findings include osteopenia, tiny posterior/small heel spurs, and tiny lateral malleolus heterotopic ossifications. No other bony, articular, or soft tissue abnormalities.
[2022-12-02 10:22] VITALS: BP 137/68; PULSE 66
[2022-12-02 10:32] VITALS: O2SAT 96
== END 2022-12-02 10:52 | disposition home or self-care (01) ==
LOC: ED 09:17
DX: S93.401A Sprain of unspecified ligament of right ankle, initial encounter (principal); X50.0XXA Overexertion from strenuous movement or load, initial encounter; E78.5 Hyperlipidemia, unspecified; I10 Essential (primary) hypertension; Z79.899 Other long term (current) drug therapy
CPT/HCPCS: 73610; 96372; 99283; J1885

== ENCOUNTER 2024-01-27 13:41 | Emergency (ER) | payer MEDICARE, SELFPAY ==
--- NOTE | 2024-01-27 13:50 | ERPHSYRPT ---
- History of Present Illness Time Seen by Provider: 01/27/24 13:50 Source: patient, family Exam Limitations: no limitations Physician History: This is an obese 68-year-old white female patient of nurse practitioner Stalin who arrives by private vehicle. Patient was seen by a nurse practitioner in the clinic to be evaluated because of shortness of breath that is going on for approximately 2 days. During the interview process, a series of questions were asked and the patient's responses to those questions prompted a concern for possible suicidal ideation. Patient stated to one of the questions "I am a burden to my family" and "it would be better if I was ". On arrival to the emergency department room her room air oxygen saturation level is 98%. Her respiratory rate is 18-20 respirations per minute. She denies chest pain. She denies being suicidal or homicidal. She does not have a plan. She is very sad and depressed at this time. Patient has a history of hypertension, gastroesophageal reflux disease, hypothyroidism, depression, hyperlipidemia and gout. Timing/Duration: day(s) (2) Severity of Symptoms-Max: mild (To moderate) Severity of Symptoms-Current: mild (To moderate) Context related to: living circumstances (Family issues) Suicidal thoughts: other (Denies) Associated Symptoms: anxiety, depressed, No angry, No agitated, No hostile, No hallucinating, No impaired concentration, No ingestion, No injury, No paranoid, No suicidal ideation Previous symptoms: no prior history, no recent treatment Allergies/Adverse Reactions: No Known Drug Allergies Allergy (Verified 01/27/24 13:52) Home Medications: Metoprolol Succinate 50 mg [Toprol Xl 50 MG] 50 mg PO DAILY 11/01/16 [History] Omeprazole 20 MG [Prilosec 20 mg] 20 mg PO DAILY 11/01/16 [History] Allopurinol 300 mg [Zyloprim 300 mg] 300 mg PO DAILY 04/07/17 [History] Atorvastatin Calcium 10 mg PO DAILY 12/14/21 [History] Escitalopram Oxalate [Lexapro] 10 mg PO DAILY 12/14/21 [History] Levothyroxine Sodium 1 ea PO DAILY 12/14/21 [History] Triamterene/Hydrochlorothiazid [Triamterene-Hctz 37.5-25 mg Tb] 1 ea PO DAILY 12/14/21 [History] Hx Tetanus, Diphtheria Vaccination/Date Given: No Hx Influenza Vaccination/Date Given: No Hx Pneumococcal Vaccination/Date Given: No Travel Risk - International Travel Have you traveled outside of the country in past 3 weeks: No - Emerging Infectious Disease Are you exhibiting symptoms associated with any current EIDs: No - Past Medical History Pertinent Past Medical History: Yes Neurological History: TIA ENT History: Cataracts Cardiac History: High Cholesterol, Hypertension Respiratory History: No Pertinent History Endocrine Medical History: No Pertinent History Musculoskeletal History: Degenerative Disk Disease GI Medical History: GERD, Other History: No Pertinent History Psycho-Social History: No Pertinent History Female Reproductive Disorders: No Pertinent History Other Medical History: GOUT, OBESITY, GERD, DIVERTICULITIS, CHRONIC INTERSTITIAL CYSTITIS. SX HX - HYSTERECTOMY, CHOLECHYSTECTOMY,hiatal hernia - Past Surgical History Past Surgical History: Yes Neuro Surgical History: No Pertinent History Cardiac: No Pertinent History Respiratory: No Pertinent History Gastrointestinal: Cholecystectomy Genitourinary: No Pertinent History Musculoskeletal: No Pertinent History Female Surgical History: Hysterectomy Other Surgical History: right cataract extraction - Social History Smoking Status: Never smoker Exposure to second hand smoke: Yes Drug Use: none Patient Lives Alone: Yes - Review of Systems Constitutional: No Symptoms Eyes: No Symptoms Ears, Nose, & Throat: No Symptoms Respiratory: Dyspnea, No Cough Cardiac: No Symptoms, No Chest Pain Abdominal/Gastrointestinal: No Symptoms Genitourinary Symptoms: No Symptoms Musculoskeletal: No Symptoms Skin: No Symptoms Neurological: No Symptoms Psychological: Anxiety, Depression, No Suicidal Ideations, No Homicidal Ideations Endocrine: No Symptoms Hematologic/Lymphatic: No Symptoms Immunological/Allergic: No Symptoms All Other Systems: Reviewed and Negative - Nursing Vital Signs Nursing Vital Signs: Initial Vital Signs Pulse Rate 77 01/27/24 13:43 Respiratory Rate 12 01/27/24 13:43 Blood Pressure 176/84 01/27/24 13:43 O2 Sat by Pulse Oximetry 97 01/27/24 13:43 Pain Scale Pain Intensity 0 - Physical Exam General Appearance: no apparent distress, alert, anxiety, obese Eyes, Ears, Nose, Throat Exam: normal ENT inspection, moist mucous membranes Neck Exam: normal inspection, non-tender, supple, full range of motion Respiratory Exam: normal breath sounds, lungs clear, airway intact, No chest tenderness, No respiratory distress Cardiovascular Exam: regular rate/rhythm, normal heart sounds, normal peripheral pulses Gastrointestinal/Abdominal Exam: soft, normal bowel sounds, No tenderness Extremities Exam: normal inspection, normal range of motion, No evidence of injury Neurological Exam: alert, 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, 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, oriented x 3, anxious, depressed affect Appearance: appropriate appearance, appropriate insight, neat Behavior/Eye Contact/Speech: alert & cooperative, good eye contact, normal speech Thoughts/Hallucinations: normal thought pattern, no apparent hallucination Skin Exam: normal color, warm, dry SpO2 Interpretation: normal O2 Delivery: Room Air - Course Nursing assessment & vital signs reviewed: Yes EKG Interpreted by Me: RATE (89), Sinus Rhythm, NORMAL AXIS, NORMAL INTERVALS, NORMAL QRS, NORMAL ST-T, Other (No acute ischemic changes on today's twelve-lead EKG.) Ordered Tests: Active Orders 24 hr Category Date Time Status EKG-ER Only STAT Care 01/27/24 13:59 Active Pulse Oximetry (ED) STAT Care 01/27/24 13:59 Active Tele-Health Consult ROUTINE Cons 01/27/24 16:38 Active CHEST 1 VIEW (PORTABLE) Stat Exams 01/27/24 15:49 Completed ACETAMINOPHEN Stat Lab 01/27/24 14:15 Completed CBC W DIFF Stat Lab 01/27/24 14:15 Completed CMP Stat Lab 01/27/24 14:15 Completed D-DIMER QUANTITATIVE Stat Lab 01/27/24 14:15 Completed ETHYL ALCOHOL Stat Lab 01/27/24 14:15 Completed NT PRO BNPII Stat Lab 01/27/24 14:15 Completed SALICYLATE Stat Lab 01/27/24 14:15 Completed TROPONIN Q4H Lab 01/27/24 14:15 Completed TROPONIN Q4H Lab 01/27/24 18:00 Ordered TROPONIN Q4H Lab 01/27/24 22:00 Ordered UA W/RFX UR CULTURE Stat Lab 01/27/24 14:03 Completed Urine Triage Profile Stat Lab 01/27/24 14:03 Completed Lab/Rad Data: Laboratory Result Diagrams 01/27/24 14:15 01/27/24 14:15 Laboratory Results 01/27/24 01/27/24 01/27/24 Range/Units 14:15 14:15 14:15 WBC (3.98-10.04) x10^3/uL RBC (3.93-5.22) x10^6/uL Hgb (11.2-15.7) g/dL Hct (34.1-44.9) % MCV (79.4-94.8) fL MCH (25.6-32.2) pg MCHC (32.2-35.5) g/dL RDW (11.7-14.4) % Plt Count (182-369) x10^3/uL MPV (9.4-12.3) fL Gran % (34.0-71.1) % Immature Gran % (Auto) (0.001-0.429) % Nucleat RBC Rel Count (0.00-0.2) % Eos # (Auto) (0.04-0.36) x10^3/uL Immature Gran # (Auto) (0.001-0.031) x10^3u/L Absolute Lymphs (auto) (1.18-3.74) x10^3/uL Absolute Monos (auto) (0.24-0.86) x10^3/uL Absolute Nucleated RBC (0.00-0.012) x10^3u/L Lymphocytes % (19.3-51.7) % Monocytes % (4.7-12.5) % Eosinophils % (0.7-5.8) % Basophils % (0.1-1.2) % Absolute Granulocytes (1.56-6.13) x10^3/uL Basophils # (0.01-0.08) x10^3/uL D-Dimer 0.31 (0.0-0.50) mg/L Sodium (135-145) mmol/L Potassium (3.5-5.1) mmol/L Chloride (98-107) mmol/L Carbon Dioxide (22-30) mmol/L Anion Gap (5-15) MEQ/L BUN (7-17) mg/dL Creatinine (0.52-1.04) mg/dL Estimated GFR ML/MIN Glucose (74-106) mg/dL Calcium (8.4-10.2) mg/dL Total Bilirubin (0.2-1.3) mg/dL AST (14-36) U/L ALT (0-35) U/L Alkaline Phosphatase (38-126) U/L Troponin I < 0.012 (0.000-0.033) ng/mL NT-Pro-B Natriuret Pep (<300) pg/mL Serum Total Protein (6.3-8.2) g/dL Albumin (3.5-5.0) g/dL Urine Color (Yellow) Urine Appearance (Clear) Urine pH (4.6-8.0) Ur Specific [place] (1.005-1.030) Urine Protein (Negative) Urine Glucose (UA) (Negative) mg/dL Urine Ketones (Negative) Urine Blood (Negative) Urine Nitrite (Negative) Urine Bilirubin (Negative) Urine Urobilinogen (0.2) mg/dL Ur Leukocyte Esterase (Negative) U Hyaline Cast (Auto) (0-2) /LPF Urine Microscopic RBC (0-5) /HPF Urine Microscopic WBC (0-5) /HPF Ur Epithelial Cells (None Seen) /HPF Urine Bacteria (None Seen) /HPF Urine Culture Reflexed (NO) Salicylates (2-20) mg/dL Urine Opiates Level (NEGATIVE) Ur Methadone (NEGATIVE) Acetaminophen (10-30) ug/ml Urine Barbiturates (NEGATIVE) Ur Phencyclidine (PCP) (NEGATIVE) Urine Amphetamine (NEGATIVE) U Benzodiazepine Level (NEGATIVE) Urine Cocaine (NEGATIVE) Urine Marijuana (THC) (NEGATIVE) Ethyl Alcohol (0-10) mg/dL Influenza Type A Ag NEGATIVE (NEGATIVE) Influenza Type B Ag NEGATIVE (NEGATIVE) RSV (PCR) NEGATIVE (NEGATIVE) SARS-CoV-2 (PCR) NEGATIVE (NEGATIVE) 01/27/24 01/27/24 01/27/24 Range/Units 14:15 14:15 14:03 WBC 11.1 H (3.98-10.04) x10^3/uL RBC 4.69 (3.93-5.22) x10^6/uL Hgb 13.3 (11.2-15.7) g/dL Hct 40.7 (34.1-44.9) % MCV 86.8 (79.4-94.8) fL MCH 28.4 (25.6-32.2) pg MCHC 32.7 (32.2-35.5) g/dL RDW 14.3 (11.7-14.4) % Plt Count 327 (182-369) x10^3/uL MPV 9.3 L (9.4-12.3) fL Gran % 71.5 H (34.0-71.1) % Immature Gran % (Auto) 0.4 (0.001-0.429) % Nucleat RBC Rel Count 0.0 (0.00-0.2) % Eos # (Auto) 0.12 (0.04-0.36) x10^3/uL Immature Gran # (Auto) 0.04 H (0.001-0.031) x10^3u/L Absolute Lymphs (auto) 2.05 (1.18-3.74) x10^3/uL Absolute Monos (auto) 0.82 (0.24-0.86) x10^3/uL Absolute Nucleated RBC 0.00 (0.00-0.012) x10^3u/L Lymphocytes % 18.5 L (19.3-51.7) % Monocytes % 7.4 (4.7-12.5) % Eosinophils % 1.1 (0.7-5.8) % Basophils % 1.1 (0.1-1.2) % Absolute Granulocytes 7.95 H (1.56-6.13) x10^3/uL Basophils # 0.12 H (0.01-0.08) x10^3/uL D-Dimer (0.0-0.50) mg/L Sodium 139 (135-145) mmol/L Potassium 3.6 (3.5-5.1) mmol/L Chloride 103 (98-107) mmol/L Carbon Dioxide 27 (22-30) mmol/L Anion Gap 12.3 (5-15) MEQ/L BUN 16 (7-17) mg/dL Creatinine 1.05 H (0.52-1.04) mg/dL Estimated GFR 58.2 ML/MIN Glucose 102 (74-106) mg/dL Calcium 9.4 (8.4-10.2) mg/dL Total Bilirubin 0.50 (0.2-1.3) mg/dL AST 29 (14-36) U/L ALT 40 H (0-35) U/L Alkaline Phosphatase 101 (38-126) U/L Troponin I (0.000-0.033) ng/mL NT-Pro-B Natriuret Pep 102 (<300) pg/mL Serum Total Protein 7.1 (6.3-8.2) g/dL Albumin 4.3 (3.5-5.0) g/dL Urine Color (Yellow) Urine Appearance (Clear) Urine pH (4.6-8.0) Ur Specific [place] (1.005-1.030) Urine Protein (Negative) Urine Glucose (UA) (Negative) mg/dL Urine Ketones (Negative) Urine Blood (Negative) Urine Nitrite (Negative) Urine Bilirubin (Negative) Urine Urobilinogen (0.2) mg/dL Ur Leukocyte Esterase (Negative) U Hyaline Cast (Auto) (0-2) /LPF Urine Microscopic RBC (0-5) /HPF Urine Microscopic WBC (0-5) /HPF Ur Epithelial Cells (None Seen) /HPF Urine Bacteria (None Seen) /HPF Urine Culture Reflexed (NO) Salicylates < 1.0 L (2-20) mg/dL Urine Opiates Level NEGATIVE (NEGATIVE) Ur Methadone NEGATIVE (NEGATIVE) Acetaminophen < 10 L (10-30) ug/ml Urine Barbiturates NEGATIVE (NEGATIVE) Ur Phencyclidine (PCP) NEGATIVE (NEGATIVE) Urine Amphetamine NEGATIVE (NEGATIVE) U Benzodiazepine Level NEGATIVE (NEGATIVE) Urine Cocaine NEGATIVE (NEGATIVE) Urine Marijuana (THC) NEGATIVE (NEGATIVE) Ethyl Alcohol < 10 (0-10) mg/dL Influenza Type A Ag (NEGATIVE) Influenza Type B Ag (NEGATIVE) RSV (PCR) (NEGATIVE) SARS-CoV-2 (PCR) (NEGATIVE) 01/27/24 Range/Units 14:03 WBC (3.98-10.04) x10^3/uL RBC (3.93-5.22) x10^6/uL Hgb (11.2-15.7) g/dL Hct (34.1-44.9) % MCV (79.4-94.8) fL MCH (25.6-32.2) pg MCHC (32.2-35.5) g/dL RDW (11.7-14.4) % Plt Count (182-369) x10^3/uL MPV (9.4-12.3) fL Gran % (34.0-71.1) % Immature Gran % (Auto) (0.001-0.429) % Nucleat RBC Rel Count (0.00-0.2) % Eos # (Auto) (0.04-0.36) x10^3/uL Immature Gran # (Auto) (0.001-0.031) x10^3u/L Absolute Lymphs (auto) (1.18-3.74) x10^3/uL Absolute Monos (auto) (0.24-0.86) x10^3/uL Absolute Nucleated RBC (0.00-0.012) x10^3u/L Lymphocytes % (19.3-51.7) % Monocytes % (4.7-12.5) % Eosinophils % (0.7-5.8) % Basophils % (0.1-1.2) % Absolute Granulocytes (1.56-6.13) x10^3/uL Basophils # (0.01-0.08) x10^3/uL D-Dimer (0.0-0.50) mg/L Sodium (135-145) mmol/L Potassium (3.5-5.1) mmol/L Chloride (98-107) mmol/L Carbon Dioxide (22-30) mmol/L Anion Gap (5-15) MEQ/L BUN (7-17) mg/dL Creatinine (0.52-1.04) mg/dL Estimated GFR ML/MIN Glucose (74-106) mg/dL Calcium (8.4-10.2) mg/dL Total Bilirubin (0.2-1.3) mg/dL AST (14-36) U/L ALT (0-35) U/L Alkaline Phosphatase (38-126) U/L Troponin I (0.000-0.033) ng/mL NT-Pro-B Natriuret Pep (<300) pg/mL Serum Total Protein (6.3-8.2) g/dL Albumin (3.5-5.0) g/dL Urine Color Yellow (Yellow) Urine Appearance Cloudy A (Clear) Urine pH 6.5 (4.6-8.0) Ur Specific [place] 1.010 (1.005-1.030) Urine Protein Negative (Negative) Urine Glucose (UA) Negative (Negative) mg/dL Urine Ketones Negative (Negative) Urine Blood Negative (Negative) Urine Nitrite Negative (Negative) Urine Bilirubin Negative (Negative) Urine Urobilinogen 0.2 (0.2) mg/dL Ur Leukocyte Esterase Negative (Negative) U Hyaline Cast (Auto) NONE SEEN (0-2) /LPF Urine Microscopic RBC 0-2 (0-5) /HPF Urine Microscopic WBC 0-2 (0-5) /HPF Ur Epithelial Cells Rare (None Seen) /HPF Urine Bacteria None Seen (None Seen) /HPF Urine Culture Reflexed NO (NO) Salicylates (2-20) mg/dL Urine Opiates Level (NEGATIVE) Ur Methadone (NEGATIVE) Acetaminophen (10-30) ug/ml Urine Barbiturates (NEGATIVE) Ur Phencyclidine (PCP) (NEGATIVE) Urine Amphetamine (NEGATIVE) U Benzodiazepine Level (NEGATIVE) Urine Cocaine (NEGATIVE) Urine Marijuana (THC) (NEGATIVE) Ethyl Alcohol (0-10) mg/dL Influenza Type A Ag (NEGATIVE) Influenza Type B Ag (NEGATIVE) RSV (PCR) (NEGATIVE) SARS-CoV-2 (PCR) (NEGATIVE) - Progress Progress: unchanged Progress Note: 01/27/24 14:21 My medical decision making and the assignment of moderate complexity of this patient's medical issue today is based on review of the patient's past medical history, review the patient's medication list, review patient drug allergy list, history present illness and physical findings on examination. The workup in this patient includes placement of intravenous line, twelve-lead EKG, BNP, D- dimer, troponin level, CBC, CMP, viral swabs, acetaminophen, salicylate levels, ethyl alcohol level, urinalysis and urine drug triage. Differential diagnosis includes but is not limited to pneumonia, myocardial infarction, anemia, electrolyte abnormalities, arrhythmias, pulmonary embolus, depression, anxiety 01/27/24 16:32 Chest x-ray preliminary report was interpreted by me. No acute cardiopulmonary process. 01/27/24 16:33 Laboratory data results were interpreted by me. There is no evidence of any acute, emergent medical issue based on the results of the laboratory data. 01/27/24 17:31 Nurse practitioner Roxanne Burleson evaluated this patient from [facility]. She advised and recommended outpatient safety plan. Clinical impression is depression unspecified. Counseled pt/family regarding: lab results, diagnosis, need for follow-up, rad results Medical Desision Making - Diagnostic Testing Diagnostic test were ordered, analyzed, and reviewed by me: Yes Radiological Interpretation: Reviewed by me, Teleradiologist Report - Risk of complications Low Risk: Low risk of morbidity from additional dx testing or treatment - Departure Departure Disposition: Home Clinical Impression: Shortness of breath, Depression, unspecified Condition: Stable Critical Care Time: No Referrals: GAVIN ALVAREZ NP [Primary Care Provider] - Follow up/PCP as directed Additional Instructions: Take all your medications as prescribed. Follow the outpatient safety plan that you agree to with [facility]. Call your primary care provider on 01/30/2024, to make arranges for follow-up appointment for further evaluation management.
[2024-01-27 14:03] VITALS: TEMP 97
[2024-01-27 14:21] LABS: Absolute Neutrophil Ct (ANC) 7.95 x10^3/uL (1.56-6.13); BASOPHIL % 1.1 % (0.1-1.2); Basophil (Absolute #) 0.12 x10^3/uL (0.01-0.08); Eosinophil % 1.1 % (0.7-5.8); Eosinophil (Absolute #) 0.12 x10^3/uL (0.04-0.36); Hematocrit 40.7 % (34.1-44.9); Hemoglobin 13.3 g/dL (11.2-15.7); IMMATURE GRAN # 0.04 x10^3u/L (0.001-0.031); IMMATURE GRAN % 0.4 % (0.001-0.429); Lymphocyte (Absolute #) 2.05 x10^3/uL (1.18-3.74); Lymphocytes % 18.5 % (19.3-51.7); Mean Cell Volume 86.8 fL (79.4-94.8); Mean Corpuscular Hemoglobin 28.4 pg (25.6-32.2); Mean Corpuscular Hgb Concent. 32.7 g/dL (32.2-35.5); Mean Platelet Volume 9.3 fL (9.4-12.3); Monocyte (Absolute #) 0.82 x10^3/uL (0.24-0.86); Monocytes % 7.4 % (4.7-12.5); Neutrophil % 71.5 % (34.0-71.1); Platelet Count 327 x10^3/uL (182-369); Red Blood Count 4.69 x10^6/uL (3.93-5.22); Red Cell Distribution Width 14.3 % (11.7-14.4); White Blood Count 11.1 x10^3/uL (3.98-10.04)
[2024-01-27 14:30] LABS: Appearance Cloudy (Clear); Bacteria None Seen /HPF (None Seen); Bilirubin Negative (Negative); Blood Negative (Negative); Epithelial Cells Rare /HPF (None Seen); Glucose, Urine Negative (Negative); Hyaline Casts NONE SEEN /LPF (0-2); Ketones Negative (Negative); Leukocyte Esterase Negative (Negative); Nitrite Negative (Negative); Ph 6.5 (4.6-8.0); Protein,Urine Dip Negative (Negative); RBC 0-2 /HPF (0-5); Urobilinogen 0.2 mg/dL (0.2); WBC 0-2 /HPF (0-5)
[2024-01-27 14:43] LABS: ADD URINE CULTURE? NO (NO)
[2024-01-27 14:44] LABS: ACETAMINOPHEN < 10 ug/ml (10-30); ALBUMIN 4.3 g/dL (3.5-5.0); ALKALINE PHOSPHATASE 101 U/L (38-126); ANION GAP 12.3 MEQ/L (5-15); BLOOD UREA NITROGEN 16 mg/dL (7-17); CHLORIDE 103 mmol/L (98-107); Calcium 9.4 mg/dL (8.4-10.2); Carbon Dioxide 27 mmol/L (22-30); Creatinine 1 1.05 mg/dL (0.52-1.04); EST GLOMERULAR FILTRATION RATE 58.2 ML/MIN; ETHYL ALCOHOL < 10 mg/dL (0-10); Glucose 102 mg/dL (74-106); NT PRO BNPII 102 pg/mL (<300); Potassium 3.6 mmol/L (3.5-5.1); SALICYLATE < 1.0 mg/dL (2-20); SGOT/AST 29 U/L (14-36); SGPT/ALT 40 U/L (0-35); SODIUM 139 mmol/L (135-145); Total Protein 7.1 g/dL (6.3-8.2)
[2024-01-27 14:50] LABS: Barbiturate,Urine NEGATIVE (NEGATIVE); Benzodiazepine,Urine NEGATIVE (NEGATIVE); Cocaine,Urine NEGATIVE (NEGATIVE); Methadone,Urine NEGATIVE (NEGATIVE); Opiate,Urine NEGATIVE (NEGATIVE); PCP,Urine NEGATIVE (NEGATIVE); THC,Urine NEGATIVE (NEGATIVE)
[2024-01-27 14:53] LABS: Amphetamine,Urine NEGATIVE (NEGATIVE)
[2024-01-27 15:54] LABS: INFLUENZA A NEGATIVE (NEGATIVE); INFLUENZA B NEGATIVE (NEGATIVE); RESPIRATORY SYNCTIAL VIRUS NEGATIVE (NEGATIVE); SARS-CoV-2 Xpert Express NEGATIVE (NEGATIVE)
--- NOTE | 2024-01-27 16:38 | XRAY ---
Indication: Short of breath. Comparison: December 14, 2021 Portable apical lordotic chest is less inflated and remains clear. Heart not enlarged. Bony thorax intact again with mild degenerative changes. Impression: Nonacute underinflated chest.
[2024-01-27 17:04] VITALS: BP 156/68; PULSE 72; RESP 18; O2SAT 99
== END 2024-01-27 17:57 | disposition home or self-care (01) ==
LOC: ED 13:41
DX: R06.02 Shortness of breath (principal); F32.A Depression, unspecified; I10 Essential (primary) hypertension; E78.5 Hyperlipidemia, unspecified; Z79.899 Other long term (current) drug therapy
CPT/HCPCS: 0241U; 36415; 71045; 80053; 80143; 80179; 80307; 81001; 82077; 83880; 84484; 85025; 85379; 90791; 93005; 94760; 99284; Q3014

== ENCOUNTER 2024-06-22 05:56 | Day surgery (SDC) | payer MEDICARE ==
[2024-06-22 06:34] VITALS: RESP 18
[2024-06-22 06:36] LABS: Absolute Neutrophil Ct (ANC) 7.13 x10^3/uL (1.56-6.13); BASOPHIL % 1.1 % (0.1-1.2); Basophil (Absolute #) 0.11 x10^3/uL (0.01-0.08); Eosinophil % 1.2 % (0.7-5.8); Eosinophil (Absolute #) 0.12 x10^3/uL (0.04-0.36); Hemoglobin 14.2 g/dL (11.2-15.7); IMMATURE GRAN # 0.05 x10^3u/L (0.001-0.031); IMMATURE GRAN % 0.5 % (0.001-0.429); Lymphocyte (Absolute #) 2.14 x10^3/uL (1.18-3.74); Lymphocytes % 20.8 % (19.3-51.7); Mean Corpuscular Hemoglobin 28.1 pg (25.6-32.2); Mean Corpuscular Hgb Concent. 33.8 g/dL (32.2-35.5); Mean Platelet Volume 9.3 fL (9.4-12.3); Monocyte (Absolute #) 0.75 x10^3/uL (0.24-0.86); Monocytes % 7.3 % (4.7-12.5); Neutrophil % 69.1 % (34.0-71.1); Platelet Count 401 x10^3/uL (182-369); Red Blood Count 5.06 x10^6/uL (3.93-5.22); Red Cell Distribution Width 13.2 % (11.7-14.4); White Blood Count 10.3 x10^3/uL (3.98-10.04)
[2024-06-22 07:09] LABS: ANION GAP 14.6 MEQ/L (5-15); Calcium 9.5 mg/dL (8.4-10.2); Creatinine 1 1.44 mg/dL (0.52-1.04); EST GLOMERULAR FILTRATION RATE 39.9 ML/MIN; Potassium 3.7 mmol/L (3.5-5.1)
[2024-06-22] MEDS ORDERED: DIPRIVAN 200 MG/20 ML IV ONE ×2 (07:32→07:44)
[2024-06-22 08:24] VITALS: TEMP 97.2
[2024-06-22 08:34] VITALS: BP 118/61; PULSE 70; O2SAT 97
--- NOTE | 2024-06-25 09:00 | OP ---
SURGERY DATE/TIME: 06/22/2024 PREOPERATIVE DIAGNOSIS: Heme-positive stools and history of colon polyps. POSTOPERATIVE DIAGNOSIS: Mild right-sided colitis and mild diverticulosis. PROCEDURE: Colonoscopy. SURGEON: Peter Barbosa MD ANESTHESIA: Medications were given by the anesthesia department. INDICATIONS: The patient is a 68-year-old white female presenting now for colonoscopic evaluation. We had done a stool test on her and found some blood. According to her history, she has previously had colonoscopies where polyps were removed 5 years ago. The patient was felt the need to have endoscopic evaluation. She was appraised of the risks of the procedure including risk of perforation, phlebitis, untoward reaction to medication, bleeding, and missed lesions. The patient verbalized her understanding and desire to have procedure performed. DESCRIPTION OF PROCEDURE AND FINDINGS: The patient was given medication by the anesthesia department. She had continuous pulse oximetry, ECG monitoring, and intermittent blood pressure monitoring during the examination. She was placed in the left lateral decubitus position. Digital rectal examination was performed and revealed normal anal sphincter tone, no masses, mild hemorrhoids. The flexible Olympus videocolonoscope was used to intubate the rectum. A view of the colon was developed sequentially to the cecum. Upon insertion and withdrawal was noted mild right-sided colitis, and diverticulosis was noted through the colon but was mild to moderate in nature. No other mucosal lesions were encountered. The scope was removed. The patient tolerated the procedure well and was sent back to outpatient recovery in good condition. The prep was noted to be fair to good.
== END 2024-06-22 08:35 | disposition home or self-care (01) ==
LOC: SDC 05:56
PROVIDERS: ATTEND Family Medicine
DX: Z09 Encounter for follow-up examination after completed treatment for conditions other than malignant neoplasm (principal); Z86.0100 Personal history of colon polyps, unspecified; R19.5 Other fecal abnormalities; K52.9 Noninfective gastroenteritis and colitis, unspecified; K57.30 Diverticulosis of large intestine without perforation or abscess without bleeding; K64.9 Unspecified hemorrhoids
CPT/HCPCS: 36415; 80048; 85025; 93005; J2704